=== PATIENT | female | born 1995 | race Caucasian/White ===

== ENCOUNTER 2018-07-26 17:06 | Emergency (ER) | payer BC, OTHER ==
[2018-07-26 18:05] LABS: URINE APPEARANCE SL CLOUDY; URINE BILIRUBIN NEGATIVE (NEGATIVE); URINE BLOOD LARGE (NEGATIVE); URINE COLOR YELLOW; URINE GLUCOSE (UA) NEGATIVE (NEGATIVE); URINE KETONE NEGATIVE (NEGATIVE); URINE LEUKOCYTE ESTERASE LARGE (NEGATIVE); URINE NITRITE POSITIVE (NEGATIVE); URINE UROBILINOGEN 0.2 E.U./dL (0.20 - 1.00)
[2018-07-26 18:11] LABS: URINE RBC >50 (NONE SEEN); URINE WBC >50 (0-2/hpf)
[2018-07-26 18:12] LABS: HCG,QUALITATIVE URINE NEGATIVE (NEGATIVE); URINE AMORPHOUS SEDIMENT 2+; URINE BACTERIA 2+; URINE EPITHELIAL CELLS 0 - 2 (FEW)
[2018-07-26] MEDS ORDERED: ONDANSETRON HCL IV 4 MG/2 ML VIAL IV ONE (18:41)
[2018-07-26] MEDS ORDERED: 0.9 % SODIUM CHLORIDE 1,000 ML BAG IV ONE ×2 (18:41→19:57)
--- NOTE | 2018-07-26 18:48 | Emergency Department Record ---
History of Present Illness - General Chief Complaint: Abdominal Pain Stated Complaint: REACTION TO MEDS Time Seen by Provider: 07/26/18 18:13 Source: Patient Mode of Arrival: Ambulatory Limitations: No limitations - History of Present Illness Initial Comments: pt has had a constant rlq pain since yesterday that is crampy. she has been taking clomid for fertility. she has nausea and she thinks she has a uti MD Complaint: Abdominal pain Onset/Timin -: Days(s) Location: Periumbilical, RLQ Radiation: L flank, R flank Severity scale (1-10): 7 Quality: Cramping, Other Improves With: Nothing Worsens With: Nothing Associated Symptoms: Denies other symptoms, Nausea, Other - Related Data LMP (females 10-50): 3 weeks ago Patient : No Home Medications Medication Instructions Recorded Confirmed Last Taken Levothyroxine Sodium [Synthroid] 50 mcg PO DAILY 07/26/18 07/26/18 Unknown No122/Iron/Folic Acid 1 each PO DAILY 07/26/18 07/26/18 07/23/18 [ Multi Tablet] Previous Rx's Medication Instructions Recorded Ciprofloxacin HCl [Cipro] 500 mg PO Q12HR #14 tablet 07/26/18 Allergies Allergy/AdvReac Type Severity Reaction Status Date / Time No Known Drug Allergies Allergy Verified 07/26/18 17:53 Travel Screening - Travel/Exposure Within Last 30 Days Have you traveled within the last 30 days?: No - Travel/Exposure Within Last Year Have you traveled outside the [place] in the last year?: No - Additonal Travel Details Have you been exposed to anyone with a communicable illness?: No - Travel Symptoms Symptom Screening: None Review of Systems Reviewed: No additional complaints except as noted below Constitutional: Reports: As per HPI. Denies: Chills, Fever, Malaise, Night sweats, Weakness, Weight change Eyes: Reports: As per HPI. Denies: Eye discharge, Eye pain, Photophobia, Vision change ENT: Reports: As per HPI. Denies: Congestion, Dental pain, Ear pain, Epistaxis , Hearing loss, Throat pain Respiratory: Reports: As per HPI. Denies: Cough, Dyspnea, Hemoptysis, Stridor, Wheezes Cardiovascular: Reports: As per HPI. Denies: Arrhythmia, Chest pain, Dyspnea on exertion, Edema, Murmurs, Orthopnea, Palpitations, Paroxysmal nocturnal dyspnea, Rheumatic Fever, Syncope Endocrine: Reports: As per HPI. Denies: Fatigue, Heat or cold intolerance, Polydipsia, Polyuria Gastrointestinal: Reports: As per HPI, Abdominal pain. Denies: Constipation, Diarrhea, Hematemesis, Hematochezia, Melena, Nausea, Vomiting Genitourinary: Reports: As per HPI. Denies: Abnormal menses, Discharge, Dyspareunia, Dysuria, Frequency, Hematuria, Incontinence, Retention, Urgency Musculoskeletal: Reports: As per HPI. Denies: Arthralgia, Back pain, Gout, Joint swelling, Myalgia, Neck pain Skin: Reports: As per HPI. Denies: Bruising, Change in color, Change in hair/ nails, Lesions, Pruritus, Rash Neurological: Reports: As per HPI. Denies: Abnormal gait, Confusion, Headache, Numbness, Paresthesias, Seizure, Tingling, Tremors, Vertigo, Weakness Psychiatric: Reports: As per HPI. Denies: Anxiety, Auditory hallucinations, Depression, Homicidal thoughts, Suicidal thoughts, Visual hallucinations Hematological/Lymphatic: Reports: As per HPI. Denies: Anemia, Blood Clots, Easy bleeding, Easy bruising, Swollen glands Past Medical History - SOCIAL HISTORY Smoking Status: Never smoker Alcohol Use: Rare Drug Use: None - RESPIRATORY Hx Respiratory Disorders: No - CARDIOVASCULAR Hx Cardio Disorders: No - NEURO Hx Neuro Disorders: No - GI Hx GI Disorders: No - Hx Genitourinary Disorders: Yes Hx UTI: Yes - ENDOCRINE Hx Endocrine Disorders: Yes Hx Diabetes: No Hx Thyroid Disease: Yes (hypo) - MUSCULOSKELETAL Hx Musculoskeletal Disorders: No - PSYCH Hx Psych Problems: No - HEMATOLOGY/ONCOLOGY Hx Hematology/Oncology Disorders: No Family Medical History Any Significant Family History?: No Physical Exam - General General Appearance: Alert, Oriented x3, Cooperative, Mild distress - Head Head exam: Normal inspection - Eye Eye exam: Normal appearance, PERRL, EOMI Pupils: Normal accommodation - ENT ENT exam: Normal exam, Mucous membranes moist, Normal external ear exam, Normal orophraynx Ear exam: Normal external inspection. negative: External canal tenderness Nasal Exam: Normal inspection. negative: Discharge, Sinus tenderness Mouth exam: Normal external inspection, Tongue normal Teeth exam: Normal inspection. negative: Dental caries Throat exam: Normal inspection. negative: Tonsillar erythema, Tonsillar exudate - Neck Neck exam: Normal inspection, Full ROM. negative: Tenderness - Respiratory Respiratory exam: Normal lung sounds bilaterally. negative: Respiratory distress - Cardiovascular Cardiovascular Exam: Regular rate, Normal rhythm, Normal heart sounds - GI/Abdominal GI/Abdominal exam: Soft, Normal bowel sounds, Tenderness (rlq) - Rectal Rectal exam: Deferred - exam: Deferred - Extremities Extremities exam: Normal inspection, Full ROM, Normal capillary refill. negative: Tenderness - Back Back exam: Reports: Normal inspection, Full ROM. Denies: Muscle spasm, Rash noted, Tenderness - Neurological Neurological exam: Alert, CN II-XII intact, Normal gait, Oriented X3 - Psychiatric Psychiatric exam: Normal affect, Normal mood - Skin Skin exam: Dry, Intact, Normal color, Warm Course Vital Signs 07/26/18 17:43 Temperature 98.5 F Pulse Rate 92 H Respiratory 16 Rate Blood Pressure 135/81 Pulse Ox 99 Medical Decision Making - Lab Data Result diagrams: 07/26/18 18:53 07/26/18 18:53 Lab Results 07/26/18 Range/Units 17:55 Urine Color Yellow Urine Appearance Sl cloudy Urine pH 5.5 (5.0-8.0) Ur Specific [place] 1.020 (1.002-1.030) Urine Protein 100 mg/dl H (NEGATIVE) Urine Glucose (UA) Negative (NEGATIVE) Urine Ketones Negative (NEGATIVE) Urine Blood Large H (NEGATIVE) Urine Nitrite Positive H (NEGATIVE) Urine Bilirubin Negative (NEGATIVE) Urine Urobilinogen 0.2 (0.20 - 1.00) E.U./dL Ur Leukocyte Esterase Large H (NEGATIVE) Urine RBC >50 (NONE SEEN) Urine WBC >50 (0-2/hpf) Ur Epithelial Cells 0 - 2 (FEW) Amorphous Sediment 2+ Urine Bacteria 2+ Urine HCG, Qual Negative (NEGATIVE) Disposition Disposition: Discharge Clinical Impression: Pyelonephritis Disposition: Home, Self-Care Condition: (1) Good Instructions: Kidney Infection (ED) Additional Instructions: follow up with family doctor. return sooner if worse. push fluids. motrin for pain Prescriptions: Ciprofloxacin HCl [Cipro] 500 mg PO Q12HR #14 tablet Forms: Patient Portal Access Quality - Quality Measures Quality Measures: N/A - Blood Pressure Screening Does Patient Have Any of the Following: No Blood Pressure Classification: Pre-Hypertensive BP Reading Systolic Measurement: 135 Diastolic Measurement: 81 Screening for High Blood Pressure: < Pre-Hypertensive BP, F/U Documented > [ [id number]] Pre-Hypertensive Follow-up Interventions: Follow-up with rescreen every year.
[2018-07-26 19:01] LABS: HEMATOCRIT 43.2 % (35.0-47.0); HEMOGLOBIN 14.9 gm/dl (11.6-16.0); MEAN CELL VOLUME 87.6 fl (81-97); MEAN CORPUSCULAR HEMOGLOBIN 30.2 pg (27-33); MEAN CORPUSCULAR HGB CONC 34.5 g/dl (32-36); MEAN PLATELET VOLUME 9.1 fl (7.4-10.4); PLATELET COUNT 333 K/uL (130-400); RED BLOOD COUNT 4.93 M/uL (3.80-5.40); RED CELL DISTRIBUTION WIDTH 12.6 % (11.5-14.5); WHITE BLOOD COUNT W/O DIFF 13.9 K/uL (4.2-12.2)
[2018-07-26 19:12] LABS: BLOOD UREA NITROGEN 11 mg/dL (6-20); CREATININE 0.7 mg/dL (0.5-0.9); EST GLOMERULAR FILTRATION RATE > 60 mL/min
[2018-07-26 19:13] LABS: TOTAL PROTEIN 8.1 g/dL (6.6-8.7)
[2018-07-26 19:14] LABS: PLATELET ESTIMATE NORMAL (NORMAL)
[2018-07-26 19:15] LABS: GLUCOSE,RANDOM 104 mg/dL (74-109)
[2018-07-26 19:17] LABS: ALT/SGPT 39 U/L (<33); AST/SGOT 21 U/L (10.0-35.0)
[2018-07-26 19:18] LABS: ALB/GLOB RATIO 1.4 (1.1-1.8); ALBUMIN 4.7 g/dL (4.0-5.0); ALKALINE PHOSPHATASE 86 U/L (35-104)
[2018-07-26] MEDS ORDERED: KETOROLAC 30 MG/ML VIAL IVP ONE (19:56)
[2018-07-26] MEDS ORDERED: CIPROFLOXACIN LACTATE/D5W 400 MG/200 ML BAG IVPB ONE (19:59)
[2018-07-26] MEDS ORDERED: HYDROMORPHONE HCL 2 MG/ML VIAL IVP ONE (20:09)
== END 2018-07-26 21:16 | disposition home or self-care (01) ==
LOC: ER 17:06
DX: N10 Acute pyelonephritis (principal); R11.0 Nausea
CPT/HCPCS: 74176; 80053; 81001; 81025; 85027; 96365; 96375; 99284; J1885; J2405; J7030